=== PATIENT | female | born 1980 | race Caucasian/White ===

== ENCOUNTER → 2019-10-06 | Outpatient (CLI) | payer OTHER ==
[~2019-10-06] MED LIST: CALCA500CH PO; FISH1000 PO; FOLGARD TABLET1 EACH PO; IBUP800 PO; OXYACE5T PO; PROBIOTIC1 EAC1 PO; VIT1CAPS12; Verotin-Gr Cap1 EACH PO
[2019-10-06 14:34] LABS: BASOPHILS ABSOLUTE AUTO 0.04 K/mm3 (0.00-0.23); BASOPHILS PERCENT AUTO 1 % (0-2); EOSINOPHILS ABSOLUTE AUTO 0.06 K/mm3 (0.00-0.68); EOSINOPHILS PERCENT AUTO 1 % (0-6); Hematocrit 41.7 % (33.0-51.0); Hemoglobin 13.6 g/dL (11.5-16.0); IMMATURE GRAN ABSOLUTE AUTO 0.03 K/mm3 (0.00-0.10); IMMATURE GRAN PERCENT AUTO 1 % (0-1); LYMPHOCYTES ABSOLUTE AUTO 1.68 K/mm3 (0.84-5.20); LYMPHOCYTES PERCENT AUTO 30 % (21-46); MONOCYTES ABSOLUTE AUTO 0.38 K/mm3 (0.16-1.47); MONOCYTES PERCENT AUTO 7 % (4-13); Mean Corpuscular HGB 30.8 pg (26.0-34.0); Mean Corpuscular HGB Conc 32.6 g/dL (31.5-36.5); Mean Corpuscular Volume 94 fL (80-100); Mean Platelet Volume 9.7 fL (9.1-12.4); NEUTROPHILS ABSOLUTE AUTO 3.43 K/mm3 (1.96-9.15); NEUTROPHILS PERCENT AUTO 61 % (41-73); Platelet Count 303 K/mm3 (150-400); RDW Coefficient Variation 11.7 % (11.7-14.2); RDW Standard Deviation 40.6 fL (35.1-46.3); Red Blood Cell Count 4.42 M/mm3 (3.80-5.20); White Blood Cell Count 5.62 K/mm3 (4.00-11.30)
[2019-10-06 14:58] LABS: Alanine Aminotransfer (ALT/SGP 15 U/L (12-78); Albumin, Blood 4.2 g/dL (3.4-5.0); Albumin/Globulin Ratio 1.3 (0.8-1.8); Alk Phos 60 U/L (50-136); Anion Gap 5 mmol/L (6-16); Aspartate Aminotrans (AST/SGOT 10 U/L (12-37); Bilirubin, Total 0.4 mg/dL (0.1-1.0); Blood Urea Nitrogen 6 mg/dL (8-24); Bun/Creatinine Ratio 6.8 (12.0-20.0); CO2, Blood 26 mmol/L (21-32); Calcium, Blood 8.6 mg/dL (8.5-10.1); Chloride, Blood 109 mmol/L (98-108); Creatinine, Blood 0.88 mg/dL (0.40-1.00); Globulin, Blood 3.2 g/dL (2.2-4.0); Glomerular Filtration Rate >60 (60-); Glucose, Blood 95 mg/dL (70-99); Potassium, Blood 3.9 mmol/L (3.5-5.5); Sodium, Blood 140 mmol/L (136-145); Total Protein, Blood 7.4 g/dL (6.4-8.2)
== END ==
LOC: LAB SHORT 14:10 → LAB 14:10
PROVIDERS: Nurse Practitioner
DX: R10.9 Unspecified abdominal pain (principal)
CPT/HCPCS: 80053; 85025

== ENCOUNTER → 2020-03-30 | Outpatient (CLI) | payer OTHER | END | disposition home or self-care (01) | LOC: LAB SHORT 10:12 → LAB 10:12 | DX: R30.0 Dysuria (principal) | CPT/HCPCS: 87086 ==

== ENCOUNTER 2022-04-06 06:19 | Day surgery (SDC) | payer OTHER ==
[~2022-04-06] VITALS: Ht 167.6 cm; Wt 74.1 kg
[2022-04-06] MEDS ORDERED: MAGNESIUM OXID500 MG PO (06:47)
--- NOTE | 2022-04-06 08:32 | NUR ---
04/06/22 0832 Ольга Ferguson 350CC NACL FLUID DEFICIT FROM HYSTEROSCOPY. SURGEON AND ANESTHESIA AWARE.
--- NOTE | 2022-04-06 09:44 | NUR ---
04/06/22 0944 Juan Pablo Liz PT NOTED TO HAVE 4/10 PAIN AND WAS REQUESTING PAIN MEDICATION. PT DECLINED PERCOCET. WAS THEN GIVEN 12.5MCG OF FENTANYL WITH GOOD RELIEF AND 800MG OF IBUPROFEN. PT WAS TOLERATING PO FLUIDS AND FOOD AT THE TIME THE IBUPROFEN WAS GIVEN. ALL DISCHARGE INSTRUCTIONS WERE REVIEWED WITH BOTH PT AND SPOUSE. ALL QUESTIONS ANSWERED. PT DENIES NAUSEA AND STATES SHE HAS VERY LITTLE PAIN. IS DISCHARGED HOME IN THE CARE OF HER .
== END 2022-04-06 09:30 | disposition home or self-care (01) ==
LOC: ORSCSDS 06:19
PROVIDERS: Obstetrics & Gynecology
PROC: 0UDB8ZX Extraction of Endometrium, Via Natural or Artificial Opening Endoscopic, Diagnostic (ICD-10-PCS; principal; 2022-04-06 07:30)
PROC: 0U5B8ZZ Destruction of Endometrium, Via Natural or Artificial Opening Endoscopic (ICD-10-PCS; principal; 2022-04-06 07:30)
DX: N92.0 Excessive and frequent menstruation with regular cycle (principal); F32.A Depression, unspecified; F41.9 Anxiety disorder, unspecified
CPT/HCPCS: 88305; A9270; J2250; J2704; J3010; J7120